=== PATIENT | female | born 1935 | race Caucasian/White ===

== ENCOUNTER → 2018-07-14 12:02 | Outpatient (CLI) | payer MEDICARE, OTHER, SELFPAY ==
[2018-07-14 14:10] LABS: Erythrocyte Sedimentation Rate 40 mm/hr (0-30)
[2018-07-14 14:11] LABS: Hematocrit 46.7 % (37-47); Hemoglobin 15.8 g/dl (12.0-15.0); Mean Corp Hgb Conc 33.8 g/gl (32-36); Mean Corpuscular Hgb 29.2 pg (27.0-32.0); Mean Corpuscular Volume 86.2 fL (81-99); Mean Platelet Vol. 12.2 fl (6.2-12.0); Platelet Count 206 K/mm3 (150-450); RBC Distribution Width CV 14.4 % (11.6-14.6); RBC Distribution Width SD 45.6 fl (35.1-43.9); Red Blood Count 5.42 M/mm3 (4.2-5.4); Scan Indicated on CBC? Y/N NO; White Blood Count 7.6 K/mm3 (4.4-11.0)
== END ==
PROVIDERS: Family Provider Internal Medicine; PCP Internal Medicine; Referring Provider Ophthalmology; Visit Provider Ophthalmology
DX: I77.6 Arteritis, unspecified (principal); H46.9 Unspecified optic neuritis
CPT/HCPCS: 36415; 85027; 85652; 86140

== ENCOUNTER → 2018-07-20 12:35 | Outpatient (CLI) | payer MEDICARE, OTHER, SELFPAY ==
--- NOTE | 2018-07-20 12:35 | TEM_PTH ---
PATIENT: Harish HIGGINS LOC: [facility] U#:[id number] AGE/SX: 89/F ROOM: RE07/20/[address]: Dr. Capo Stanley MD : 1935 BED: DIS: SPEC #: [id number] RECD: 07/20/18 17:36 STATUS: LATASHA REDora #: [id number] CLYDE: 07/20/18 12:[address]: Capo Stanley DEPT: SURGICAL PATHOLOGY RECD BY: Michael Rodriguez ENTERED: 07/21/18 11:03 SP TYPE: TEMPORAL OTHR DR: Dr. Miryam Granado MD Tissues: Temporal region Procedures: Elastin Stain (control) Special Stain Group II Surgery Specimen Level IV HEADER OPERATION: Temporal artery biopsy, left PRE-OP DIAGNOSIS: Elevated sed. rate and CRP; decreased peripheral vision TISSUE SUBMITTED: Temporal artery biopsy, left MICROSCOPIC DIAGNOSIS Left temporal artery biopsy: Segment of muscular artery showing focal features suggestive of nonspecific chronic arteritis. Elastin stain with appropriate control shows partial loss of the elastin layer, supporting this diagnosis. See comment. CE:gricelda 07/22/18 COMMENT Microscopic sections show muscular artery with a few chronic inflammatory cells involving the outer muscular layer. The process is accompanied by a few histiocytes and reactive endothelial changes in the small adventitial blood vessels. Additionally, a group of subintimal histiocytes with clear cytoplasm is noted. The tissue block is leveled. Deeper sections x 60 show additional histiocytes, chronic inflammatory cells and reactive endothelial changes. No multinucleated histiocytes are identified. The findings described are not specific for temporal arteritis. 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 Correlation with clinical impression is recommended. This case was reviewed and diagnosis discussed with Dr. Stanley on 07/27/18 at 12:15 p.m. Case has been reviewed in consultation with Dr. Gore who concurs with the above diagnosis. IDC:AM MICROSCOPIC DESCRIPTION Slides are reviewed. GROSS DESCRIPTION Received in fixative is one container labeled with the patient's name and designated left temporal artery biopsy. The specimen consists of an elongated brown portion of soft tissue grossly compatible with segment of artery measuring 1.8 cm in length x 0.25 cm in diameter. The specimen is totally submitted in one cassette. / CE:gricelda 07/21/18 TC:3 CPT: 67934, [id number]
== END ==
PROVIDERS: Family Provider Internal Medicine; PCP Internal Medicine; Referring Provider Ophthalmology; Visit Provider Ophthalmology
DX: I77.6 Arteritis, unspecified (principal); R70.0 Elevated erythrocyte sedimentation rate; R79.82 Elevated C-reactive protein (CRP)
CPT/HCPCS: 88305; 88313

== ENCOUNTER → 2019-08-15 14:33 | Outpatient (CLI) | payer MEDICARE, OTHER, SELFPAY ==
--- NOTE | 2019-08-15 14:38 | RAD_ITS ---
STUDY: X-RAY - PELVIS REASON FOR EXAM: Female, 83 years old. CHRONIC LEFT HIP PAIN TECHNIQUE: One view of the pelvis was obtained. COMPARISON: None. FINDINGS: There is a non-specific bowel gas pattern. Normal visualized soft tissue structures. There is diffuse demineralization of the osseous structures. There is narrowing with cortical sclerosis and osteophyte formation of the sacroiliac joint consistent with degenerative osteoarthritic changes. Normal visualized bilateral superior and inferior pubic rami. Normal pubic symphysis. Normal ischial tuberosities. There are osteoarthritic changes of the right femoral head with marginal osteophyte formation. Normal right acetabulum. There is moderate to severe articular joint space narrowing of the right hip. There are osteoarthritic changes of the left femoral head with marginal osteophyte formation. Normal left acetabulum. There is moderate to severe articular joint space narrowing of the left hip. Additionally, there are irregular lucencies noted in both femoral heads and in the pelvis to suspect metastasis. Recommend further evaluation with bone scan or cross-sectional imaging. RAD/Pelvis 1 or 2 Views IMPRESSION: Demineralization of the osseous structures with age consistent SI joint arthrosis. Moderate to severe bilateral hip arthrosis, the pattern of arthrosis is symmetric Suspicious lucencies noted in the femoral heads and pelvis, metastasis is suspected. Recommend further evaluation with bone scan or cross-sectional imaging Electronically Signed: Blair Pretty MD at 14:57 EDT , Service support ,
[2019-08-15 18:09] LABS: Absolute Lymphocyte Count 1.02 X10^3/uL (0.83-4.51); Absolute Neutrophil Count 7.2 X10^3/uL (2.0-7.7); Basophil# 0.05 X10^3/uL; Basophil% 0.6 % (0-1); Eosinophil# 0.03 X10^3/uL; Eosinophils% 0.3 % (0-5); Hematocrit 46.3 % (37-47); Hemoglobin 14.5 g/dL (12.0-15.0); Lymphocyte # 1.02 X10^3/ul (4.0); Lymphocyte % 11.5 % (19-41); Mean Corp Hgb Conc 31.3 g/dL (32-36); Mean Corpuscular Volume 89.6 fL (81-99); Mean Platelet Vol. 11.7 fl (6.2-12.0); Monocyte# 0.49 X10^3/uL; Monocyte% 5.5 % (0-10); NRBC Flagged by Analyzer 0 % (0-5); Neutrophil # 7.21 X10^3/uL (2.7-7.7); Neutrophil % 81.5 % (47-70); Platelet Count 238 K/mm3 (150-450); RBC Distribution Width CV 15.1 % (11.6-14.6); RBC Distribution Width SD 48.5 fl (35.1-43.9); Red Blood Count 5.17 M/mm3 (4.2-5.4); White Blood Count 8.9 K/mm3 (4.4-11.0)
[2019-08-15 18:28] LABS: Erythrocyte Sedimentation Rate 32 mm/hr (0-30)
[2019-08-15 18:37] LABS: ALB/GLOB Ratio 0.8 RATIO (0.9-2.4); AST(SGOT) 21 U/L (15-37); Alanine Aminotransfer ALT/SGPT 23 U/L (13-56); Albumin, Serum 3.3 g/dL (3.2-5.0); Alkaline Phosphatase 77 U/L (45-117); Anion Gap 10 (5-15); BUN 19 mg/dL (7-18); BUN/Creat Ratio 17.1 RATIO (10-20); Calcium,Total 8.9 mg/dL (8.5-10.1); Chloride 104 mmol/L (98-107); Creatinine, Serum 1.11 mg/dL (0.55-1.02); EST Glomerular Filtration Rate 50 mL/min (>60); Est Glom Filt Rate - Afr Amer 60 mL/min (>60); Globulin 3.9 g/dL (2.2-4.2); Glucose 110 mg/dL (74-106); Potassium 3.9 mmol/L (3.5-5.1); Protein, Total 7.2 g/dL (6.4-8.2); Rheumatoid Factor < 10.0 IU/mL (<15); Sodium Level 139 mmol/L (136-145)
[2019-08-16 10:03] LABS: Hepatitis B Surface Antibody Non-Reactive; Hepatitis B Surface Antigen Non-Reactive (Nonreactive); Hepatitis C Antibody Non-Reactive (Nonreactive)
[2019-08-18 05:08] LABS: CCP IgG Antibodies 12 units (0-19)
== END ==
PROVIDERS: PCP Internal Medicine; Referring Provider Internal Medicine Rheumatology; Visit Provider Internal Medicine Rheumatology
DX: M31.6 Other giant cell arteritis (principal); M18.0 Bilateral primary osteoarthritis of first carpometacarpal joints; M47.897 Other spondylosis, lumbosacral region; M21.41 Flat foot [pes planus] (acquired), right foot; I10 Essential (primary) hypertension; Z86.711 Personal history of pulmonary embolism; E89.0 Postprocedural hypothyroidism; Z85.850 Personal history of malignant neoplasm of thyroid; F41.9 Anxiety disorder, unspecified; I89.0 Lymphedema, not elsewhere classified
CPT/HCPCS: 36415; 72170; 80053; 85025; 85652; 86140; 86200; 86431; 86706; 86803; 87340

== ENCOUNTER → 2023-02-24 | Outpatient (CLI) | payer MEDICARE, OTHER, SELFPAY ==
--- NOTE | 2023-02-24 11:37 | RAD_ITS ---
STUDY: X-RAY - PELVIS AND LEFT HIP REASON FOR EXAM: Female, 87 years old. Hip pain. TECHNIQUE: 3 views of the pelvis and left hip. COMPARISON: None. FINDINGS: There is a non-specific bowel gas pattern. Normal visualized soft tissue structures. Normal bilateral iliac wings, sacroiliac joints and visualized sacrum. Normal bilateral superior and inferior pubic rami. Normal pubic symphysis. Normal bilateral ischial tuberosities. There are osteoarthritic changes of the femoral heads bilaterally with marginal osteophyte formation. There is osteoarthritic spur formation of the acetabular rims bilaterally. There is mild articular joint space narrowing of the hip joints bilaterally. There is no demonstrated acute fracture. 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 Electronically Signed: Melvin Fair MD at 13:24 EST ,
[2023-02-24 15:33] LABS: CRP 8.16 mg/L (0.0-3.0)
[2023-02-24 16:57] LABS: Erythrocyte Sedimentation Rate 35 mm/hr (0-30)
== END | disposition home or self-care (01) ==
PROVIDERS: PCP Internal Medicine; Referring Provider Internal Medicine Rheumatology; Visit Provider Internal Medicine Rheumatology
DX: M47.897 Other spondylosis, lumbosacral region (principal)
CPT/HCPCS: 36415; 73502; 85652; 86140